=== PATIENT | male | born 1975 | race Caucasian/White ===

== ENCOUNTER 2017-04-12 15:34 | Emergency (ER) | payer OTHER ==
[~2017-04-12] VITALS: Ht 175.3 cm; Wt 136.1 kg
[~2017-04-12 15:34] MED LIST: ALEVE220 MG PO; AUGMENTIN 875-1 EACH PO; BROMFED DM COU118 ML PO; FLONASE 50 MCG16 GM; MEDROL 4MG. DOSE4 MG PO; ZITHROMAX Z PA250 MG PO
--- OUTSIDE RECORDS SUMMARY | 2017-04-12 15:45 | External Medical Summary Rpt | CCD ---
Author Author , LYDIA CHEN Address Unknown Phone [email or web address] Purpose Continuity of Care Document - 10-07-2016 through 2016 Problems Code Diagnosis DOS Provider Status S60.00XA CONTUSION OF UNSP FINGER WITHOUT DAMAGE TO NAIL, INIT ENCNTR
--- OUTSIDE RECORDS SUMMARY | 2017-04-12 15:45 | External Medical Summary Rpt | CCD ---
Author Author , LYDIA CHEN Address Unknown Phone [email or web address] Immunization Name Date Rout CVX Reac Dose Comm Prov Is Faci e tion ent ider Refu lity Give sed n Tdap 04-1 Intr 115 0.5 Hist PD20 No PD20 , 4-20 amus mL oric 255 255 Adso 17 cula al rbed r Info rmat ion - Sour ce Unsp ecif ied
--- OUTSIDE RECORDS SUMMARY | 2017-04-12 15:45 | External Medical Summary Rpt | CCD ---
Author Author , LYDIA CHEN Address Unknown Phone [email or web address] Purpose Continuity of Care Document - 10-07-2016 through 2016 Problems Code Diagnosis DOS Provider Status S60.00XA CONTUSION OF UNSP FINGER WITHOUT DAMAGE TO NAIL, INIT ENCNTR
--- OUTSIDE RECORDS SUMMARY | 2017-04-12 15:45 | External Medical Summary Rpt | CCD ---
Author Author , LYDIA CHEN Address Unknown Phone [email or web address] Immunization Name Date Rout CVX Reac Dose Comm Prov Is Faci e tion ent ider Refu lity Give sed n Tdap 04-1 Intr 115 0.5 Hist PD20 No PD20 , 4-20 amus mL oric 255 255 Adso 17 cula al rbed r Info rmat ion - Sour ce Unsp ecif ied
[2017-04-12] MEDS ORDERED: MEDROL 4MG. DOSE4 MG PO (16:01)
[2017-04-12] MEDS ORDERED: AUGMENTIN 875-1 EACH PO (16:01)
--- NOTE | 2017-04-12 16:02 | Urgent Treatment Center Report ---
History of Present Issue Date/Time Seen by Provider 04/12/17 1551 Visit Reason Pt arrived:Walked Presenting Problem:PT C/O HEADACHE AND CONGESTION. Location if Accident: Onset of symptoms date/time:/ or onset unknown for:MEDICAL HX UNKNOWN Have you (or family members/close friends) recently traveled outside the [place]? N If Yes, where/when: Have you had exposure to infectious disease within the past month? TB? Other? Specify: Patient states that he has been having headache, sinus pain and congestion State that pain is more located on the left side of his face State that he is having the pain and pressure an thinks he may have a sinus infection. State that also having some pressure like feeling around his eyes and left ear ALLERGIES Coded Allergies: Cephalosporins (12/14/15) History Medical History General CAD? No Angina: No DC: No Hypertension? No Hyperlipidemia? No CHF? No DVT? No PE? No COPD? No Asthma? No Anemia? No GERD? No Gastric ulcers? No GI Bleed? No Hernia? No Thyroid Problems? No Hypothyroidism? No CVA? No Seizures? No Diabetes? No Renal Insuffiency? No UTI? No Stones? No BPH? No GB Disease: No Nephritic Syndrome? No Asplenia? No Hepatitis? No Sickle Cell Disease? No Arthritis? No Migraines? No Cataracts? No Glaucoma? No MRSA? No HIV? No TB? No Anxiety? No Depression? No Cancer? No More? 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 Psychiatric/Neurological headache Physical Exam Vital Signs Vital Signs Date Time Temp Pulse Resp B/P Pulse O2 O2 Flow FiO2 Ox Delivery Rate 04/12 1545 98.0 85 20 124/96 97 General Appearance Patient appears ill, sitting on exam table, eyes watering puffiness noted under eyes Ear, Nose, Throat sinus pain/drainage, nasal congestion, Bilateral turbinates red, left ear bright red, TM buldging tenderness noted left side of sinuses maxillary location Respiratory Status Yes: trachea midline, chest symmetrical, non tender chest. No: respiratory distress. Lung Sounds bilateral: normal breath sounds, lungs clear. Cardiovascular normal exam, regular rate/rhythm, no peripheral edema Neurologic alert, normal exam, oriented x 3 Medical Decision Making LABS/Meds/Orders Pt receiving controlled substance in ED? No Results/Orders Orders Procedure Date/time Status [facility] FLU A,B 04/12 1600 Active Departure Departure Time of Disposition 1558 Disposition DC Home or Self Care(routine) Clinical Impression Primary Impression: Sinusitis Qualifiers: Sinusitis location: unspecified location Chronicity: unspecified Qualified Code: J32.9 - Chronic sinusitis, unspecified Condition STABLE Patient Instructions DI for Sinusitis, Sinusitis Additional Instructions Start antibiotic. Sinus infections may take 2-3 days to notice much improvement so be sure to use conservative measures as discussed for symptoms Ok to continue Sudafed Flonase 2 spray in each nostril daily to help with nasal congestion, sinus an ear pressure/inflammation Lots of Fluids Sleep elevated Humidifer/vaporizer Augmentin can cause GI effects. Probiotics may help to prevent these symptoms make sure to eat Yogurt This will help to prevent or lesson the GI effects of this medication Discharge Counseling Counseled pt/family regarding diagnosis, test results, medications/RX, home care, follow up needs Prescriptions Current Visit Scripts Amoxicillin/Potassium Clav (Augmentin 875-125 Tablet) 1 EACH PO BID #20 TAB Methylprednisolone (Medrol Dose Darlin) 4 MG PO UD #1 DARLIN TAKE DIRECTED ON PACKAGING at 1602
[2017-04-12 16:04] VITALS: BP 124/96
[2017-04-19] MEDS ORDERED: LEVAQUIN500 MG PO (17:44)
[2017-04-19] MEDS ORDERED: PROAIR HFA0.09 MG/AC IH (17:44)
[2017-04-19] MEDS ORDERED: TESSALON PERLE100 M1 PO (17:44)
[2017-04-19] MEDS ORDERED: PREDNISONE 20MG20 MG PO (17:45)
== END 2017-04-12 16:05 | disposition home or self-care (01) ==
LOC: UTC 15:34
DX: J32.9 Chronic sinusitis, unspecified (principal)